=== PATIENT | female | born 1935 ===

== ENCOUNTER 2018-03-18 04:18 | Observation (INO) | payer MEDICARE ==
--- NOTE | 2018-03-18 04:44 | ED PDOC ---
Arrival/HPI - General Chief Complaint: Weakness/Neurological Deficit Time Seen by Provider: 03/18/18 04:21 Historian: Patient - History of Present Illness Narrative History of Present Illness (Text): 03/18/18 04:37 Francesca Duong is an 82 year old female, whose past medical history includes hypertension and pacemaker, who presents to the Emergency department accompanied by family complaining of epigastric discomfort. Daughter states patient woke up today with complaints of lower chest/epigastric discomfort. Patient denies any associated nausea, vomiting, or diarrhea. Daughter also notes patient had an episode of some tremors to her arms. Patient also denies any headache, focal weakness, shortness of breath, or any other complaints. Symptom Onset: Gradual Symptom Course: Unchanged Activities at Onset: Light Context: Home Past Medical History - Provider Review Nursing Documentation Reviewed: Yes - Cardiac Hx Congestive Heart Failure: Yes Hx Hypertension: Yes - Neurological Hx Syncope: Yes - Psychiatric Hx Psychophysiologic Disorder: No Hx Substance Use: No Family/Social History - Physician Review Nursing Documentation Reviewed: Yes Family/Social History: Unknown Family HX Smoking Status: Never Smoked Hx Alcohol Use: No Hx Substance Use: No Allergies/Home Meds Allergies/Adverse Reactions: Allergies No Known Allergies Allergy (Verified 03/18/18 04:32) Home Medications: Home Meds Medication Instructions Recorded Confirmed Atorvastatin Calcium 40 mg PO DAILY 03/18/18 03/18/18 Bisoprolol Fumarate 5 mg PO DAILY 03/18/18 03/18/18 Losartan [Cozaar] 12.5 mg PO DAILY 03/18/18 03/18/18 Ranitidine HCl [Zantac] 150 mg PO DAILY 03/18/18 03/18/18 Ranolazine [Ranexa] 1,000 mg PO BID 03/18/18 03/18/18 Spironolactone [Aldactone] 25 mg PO DAILY 03/18/18 03/18/18 Review of Systems - Physician Review All systems were reviewed & negative as marked: Yes - Review of Systems Constitutional: Other (+tremors). absent: Fevers Eyes: Normal ENT: Normal Respiratory: Normal. absent: SOB, Cough Cardiovascular: Chest Pain Gastrointestinal: Abdominal Pain. absent: Diarrhea, Nausea, Vomiting Genitourinary Female: Normal Musculoskeletal: Normal. absent: Back Pain, Neck Pain Skin: Normal. absent: Rash Neurological: Normal. absent: Headache, Dizziness, Focal Weakness Endocrine: Normal Hemo/Lymphatic: Normal Psychiatric: Normal Physical Exam Vital Signs Reviewed: Yes Temperature: Afebrile Blood Pressure: Normal Pulse: Regular Respiratory Rate: Normal Appearance: Positive for: Well-Appearing, Non-Toxic, Comfortable Pain Distress: None Mental Status: Positive for: Alert and Oriented X 3 - Systems Exam Head: Present: Atraumatic, Normocephalic Pupils: Present: PERRL Extroacular Muscles: Present: EOMI Conjunctiva: Present: Normal Mouth: Present: Moist Mucous Membranes Neck: Present: Normal Range of Motion Respiratory/Chest: Present: Clear to Auscultation, Good Air Exchange. No: Respiratory Distress, Accessory Muscle Use Cardiovascular: Present: Regular Rate and Rhythm, Normal S1, S2. No: Murmurs Abdomen: No: Tenderness, Distention, Peritoneal Signs Back: Present: Normal Inspection Upper Extremity: Present: Other (Faint position tremors of hands). No: Cyanosis, Edema Lower Extremity: Present: Normal Inspection. No: Edema Neurological: Present: GCS=15, CN II-XII Intact, Speech Normal Skin: Present: Warm, Dry, Normal Color. No: Rashes Psychiatric: Present: Alert, Oriented x 3, Normal Insight, Normal Concentration Medical Decision Making ED Course and Treatment: 03/18/18 04:38 Impression: 82 year old female complaining of lower chest/epigastric discomfort and some tremors to the hands. Plan: -- CT Head w/o contrast -- EKG -- Chest X-ray -- Labs, cardiac enzymes -- Reassess and disposition Progress Notes: 03/18/18 04:48 Reviewed EKG, 100% paced rhythm at 60 bpm. 03/18/18 05:39 Chest X-ray reviewed, shows no acute processes. 03/18/18 05:52 CT Head: There is normal configuration of sella turcica. There are no intra or extra- axial collections. There is no mass effect or midline shift. There is no evidence of hematoma formation. No hydrocephalus is present. The ventricles are symmetrical. No abnormal calcifications are present. There is diffuse age-appropriate cerebellar and cerebral atrophy with proportionally dilated ventricles and cortical sulci. There are bilateral periventricular and subcortical white matter hypolucencies compatible with mild chronic microvascular disease. Otherwise, no significant focal abnormalities are seen either in the posterior fossa or supratentorial compartment. IMPRESSION: 1. Age-appropriate cerebellar and cerebral atrophy. 2. Mild chronic microvascular disease. 3. No evidence of acute intracranial pathology. Thank you for your kind referral of this patient. Electronically signed on Mar 18, 2018 5:50:31 AM EST by: Sheryl Roman M.D., Certified by ABR, MSK, Neuroradiology 03/18/18 06:[address] Victoria, who is aware and agrees with plan. Accepts pt in to her service. Pt will go to Telemetry observation for chest pain. Requests Dr. Gupta on consult. - Lab Interpretations I have reviewed the lab results: Yes - RAD Interpretation Clinical Trial Assistant: ED Physician, Radiologist - EKG Interpretation Interpreted by ED Physician: Yes Type: 12 lead EKG - Scribe Statement The provider has reviewed the documentation as recorded by the Tannaibkishor Forbes Provider Scribe Attestation: All medical record entries made by the Scribe were at my direction and personally dictated by me. I have reviewed the chart and agree that the record accurately reflects my personal performance of the history, physical exam, medical decision making, and the department course for this patient. I have also personally directed, reviewed, and agree with the discharge instructions and disposition. Disposition/Present on Arrival - Present on Arrival Any Indicators Present on Arrival: No History of DVT/PE: No History of Uncontrolled Diabetes: No Urinary Catheter: No History of Decub. Ulcer: No History Surgical Site Infection Following: None - Disposition Have Diagnosis and Disposition been Completed?: Yes Diagnosis: Chest pain Disposition: HOSPITALIZED Disposition Time: 06:09 Condition: STABLE Discharge Instructions (ExitCare): Chest Pain (ED) Forms: [employer] (Gabonese)
[2018-03-18 04:49] VITALS: RESP 18
[2018-03-18 05:19] LABS: HEMOGLOBIN 12.7 g/dL (12.0-16.0); MEAN CELL VOLUME 97.4 fl (80.0-105.0); MEAN CORPUSCULAR HEMOGLOBIN 33.3 pg (25.0-35.0); MEAN CORPUSCULAR HGB CONC 34.2 g/dl (31.0-37.0); MEAN PLATELET VOLUME 10.1 fl (7.0-11.0); RBC 3.81 10^6/uL (3.5-6.1); WHITE BLOOD COUNT 5.5 10^3/uL (4.5-11.0)
[2018-03-18 05:38] LABS: INR 1.08; PROTHROMBIN TIME 12.4 SECONDS (9.4-12.5)
[2018-03-18 05:40] LABS: ALB/GLOB RATIO 1.1 (1.1-1.8); ALT/SGPT 59 U/L (7-56); AST/SGOT 54 U/L (14-36); BLOOD UREA NITROGEN 34 mg/dL (7-21); CALCIUM 9.6 mg/dL (8.4-10.5); GFR NON-AFRICAN AMERICAN 43
[2018-03-18 05:43] LABS: TROPONIN I < 0.01 ng/mL
--- NOTE | 2018-03-18 09:07 | CT ---
Date of service: 03/18/2018 PROCEDURE: CT HEAD WITHOUT CONTRAST. HISTORY: tremors COMPARISON: None available. TECHNIQUE: Axial computed tomography images were obtained through the head/brain without intravenous contrast. Radiation dose: Total exam DLP = 710.92 mGy-cm. This CT exam was performed using one or more of the following dose reduction techniques: Automated exposure control, adjustment of the mA and/or kV according to patient size, and/or use of iterative reconstruction technique. FINDINGS: HEMORRHAGE: No intracranial hemorrhage. BRAIN: No mass effect or edema. No acute findings. Mild age-related atrophy and microvascular changes VENTRICLES: Unremarkable. No hydrocephalus. CALVARIUM: Unremarkable. PARANASAL SINUSES: Unremarkable as visualized. No significant inflammatory changes. MASTOID AIR CELLS: Unremarkable as visualized. No inflammatory changes. OTHER FINDINGS: The report concurs with the preliminary [facility] report IMPRESSION: No acute intracranial findings
--- NOTE | 2018-03-18 09:26 | CARD ---
APPROVED REPORT Date of service: 03/18/2018 EKG Measurement Heart [id number] <Conclusion> Electronic ventricular pacemaker
[2018-03-18] MEDS ORDERED: BISOPROLOL FUMARATE 5 MG PO SCH ×2 (10:00)
--- NOTE | 2018-03-18 11:09 | RAD ---
Date of service: 03/18/2018 PROCEDURE: CHEST RADIOGRAPH, 1 VIEW HISTORY: pain COMPARISON: None available. FINDINGS: LUNGS: Clear. PLEURA: No pneumothorax or pleural fluid seen. CARDIOVASCULAR: Mild cardiomegaly. Single lead pacemaker. Aortic calcifications OSSEOUS STRUCTURES: No significant abnormalities. VISUALIZED UPPER ABDOMEN: Normal. OTHER FINDINGS: None. IMPRESSION: No active disease.
[2018-03-18 11:56] VITALS: BMI 25.6
[2018-03-18 12:58] LABS: TROPONIN I 0.02 ng/mL
--- NOTE | 2018-03-18 14:19 | US ---
PROCEDURE: Bilateral carotid artery duplex ultrasound HISTORY: Carotid stenosis PHYSICIAN(S): Franklyn Mccann MD. TECHNIQUE: Duplex sonography and color-flow Doppler were used to evaluate the carotid bifurcations and limited segments of the vertebral arteries bilaterally. The proximal internal carotid arteries are moderately tortuous bilaterally FINDINGS: There is mild smooth heterogeneous plaque noted at the carotid bifurcations bilaterally. The peak systolic velocity in the proximal right internal carotid artery is 67 cm/sec. This corresponds to a 20 to 39% proximal right ICA stenosis. Normal systolic velocities are noted in the proximal right external carotid artery. There is antegrade flow in the right vertebral artery. The peak systolic velocity in the proximal left internal carotid artery is 98 cm/sec. This corresponds to a 20 to 39% proximal left ICA stenosis. Normal systolic velocities are noted in the proximal left external carotid artery. There is antegrade flow in the left vertebral artery. IMPRESSION: 1. Bilateral 20-39% proximal ICA stenoses. 2. Antegrade flow in both vertebral arteries.
--- NOTE | 2018-03-18 14:25 | US ---
Date of service: 03/18/2018 HISTORY: epigastric pain COMPARISON: None. TECHNIQUE: Sonographic evaluation of the abdomen. FINDINGS: LIVER: Measures 15.0 cm. Normal echogenicity of the liver parenchyma. No mass. No intrahepatic bile duct dilatation. GALLBLADDER: Status post cholecystectomy COMMON BILE DUCT: Measures 8 mm. Consistent with age related ectasia and prior cholecystectomy. PANCREAS: Unremarkable as visualized. No mass. No ductal dilatation. RIGHT KIDNEY: Measures 11.0cm. Normal echogenicity. No calculus, mass, or hydronephrosis. LEFT KIDNEY: Measures 10.3cm. Normal echogenicity. No calculus, mass, or hydronephrosis. SPLEEN: Normal in size and contour. No mass. AORTA: No aneurysmal dilatation. IVC: Unremarkable. OTHER FINDINGS: None. IMPRESSION: Status post cholecystectomy. No evidence of biliary obstruction.
[2018-03-18 16:05] VITALS: BP 125/74; PULSE 87; TEMP 98.4; O2SAT 95
--- NOTE | 2018-03-18 20:00 | CON ---
DATE: 03/18/2018 CARDIOLOGY CONSULTATION HISTORY OF PRESENT ILLNESS: The patient is an 82-year-old woman, who presents with a little epigastric nervousness this morning. The patient was scheduled for an ICD up in [place] this morning. The patient has had an extensive cardiac workup in the past and the most recent with a stress test that was reported to be negative approximately 4 to 8 weeks ago. She suffers from coronary disease with her last stent being placed 12 years ago. She denies chest pain, denies shortness of breath. No diabetes mellitus noted. SOCIAL HISTORY: The patient does not smoke. REVIEW OF SYSTEMS: A 14-point review of systems is reviewed in detail. No cardiac symptoms are noted. The patient is ambulating without symptoms. PHYSICAL EXAMINATION: VITAL SIGNS: Stable. NECK: Negative JVD. LUNGS: Without rales. HEART: S1, S2. EXTREMITIES: Without edema. EKG shows no acute changes. LABORATORY DATA: The first troponin is negative. IMPRESSION: 1. Epigastric discomfort. 2. Stable angina. 3. No evidence for acute coronary syndrome. 4. Hypertension. 5. Dilated cardiomyopathy. Given these findings, we will observe the second troponin. If negative, the patient can be discharged. Given her recent negative stress test, the patient can follow with the wash test checker, who has been following her for many years. Franklyn Gupta MD
--- NOTE | 2018-03-19 06:04 | HP ---
DATE OF EXAM: <> HISTORY OF PRESENT ILLNESS: The patient is 82 years old, seen and examined. The patient is Com[place]an speaking, history obtained from the son and [id number] by the bedside. According to son, the patient lives in [place] and she had pacemaker place couple of years ago and that was supposed to be changed and the patient has appointment today in [place] on her psychology department chair and primary care doctor in [place]. So, she was scheduled to be going for pacemaker/defibrillator placement today. The patient states in the middle on night, she woke up and she started to have generalized shakes, most on the right side. Her daughter who she lives with called brother, who advised her to call ambulance. The patient denies any weakness or numbness, had some chest tightness. She had generalized shakes. No history of fever or chills. No history of nausea or vomiting. No abdominal pain. They called ambulance, she was brought to ER. By the time I saw the patient, she was symptom-free and she wanted to call home. PAST MEDICAL HISTORY: Significant for: 1. Hypertension. 2. Hyperlipidemia. 3. Pulmonary hypertension. 4. Dilated cardiomyopathy with an ejection fraction of 15-20%. ALLERGIES: SHE IS NOT ALLERGIC TO ANY MEDICATIONS. MEDICATION AT HOME: She is on Cozaar 12.5 daily, 5 mg daily, atorvastatin 40 mg daily, ranitidine 150 daily, Ranexa 1000 twice a day, and spironolactone 25 daily. SOCIAL HISTORY: She used to be smoker in the remote past. She lives with her daughter lately, but otherwise she lives in [place]. PHYSICAL EXAMINATION GENERAL: She is fully awake, alert, oriented, able to communicate, speak some Kyrgyz. VITAL SIGNS: She is afebrile, pulse 87, respiration 18, blood pressure 125/74. LUNGS: Bilateral fair airflow. No rhonchi or crackle. HEART: S1 and S2 audible. ABDOMEN: Soft, nontender. No rebound, no guarding. NEUROLOGIC: The patient is awake, alert and oriented, communicative, nonfocal. No motor or sensory deficits. EXTREMITIES: Bilateral legs, no edema. LABORATORY EXAMINATION: WBC 5.5, hemoglobin 12.7, hematocrit 37.1, platelet 150. PT 12.4. INR 1.08 Chemistry: Sodium 139, potassium 4.7, chloride 105, CO2 of 25, BUN 34, creatinine 1.2. Blood sugar 121. LFTs shows AST 54 and ALT 59. Two sets of cardiac enzymes are negative. She has carotid Dopplers done that is unremarkable. Bilateral 39% stenosis abdominal sonogram, status post cholecystectomy, no evidence of biliary obstruction. ASSESSMENT: 1. Probably anxiety disorder. 2. Hypertension. 3. Dilated cardiomyopathy. 4. Hyperlipidemia. 5. History of pacemaker placement and she was scheduled to have implantable cardioverter-defibrillator in [place] today. PLAN: The patient will be seen by Dr. Gupta. This is no evidence of coronary ischemia. The patient already has scheduled appointment with her psychology department chair, so she will be discharge today and she will follow up with her psychology department chair in [place]. Marylou Victoria MD
== END 2018-03-18 16:17 | disposition home or self-care (01) ==
LOC: ED 04:18 → ERH 06:04 → MERGE 06:04 → ERH 06:17 → 3RSO 07:39
PROVIDERS: ADMIT Internal Medicine; ATTEND Internal Medicine
DX: I20.8 Other forms of angina pectoris (principal); R19.8 Other specified symptoms and signs involving the digestive system and abdomen; I42.0 Dilated cardiomyopathy; I11.0 Hypertensive heart disease with heart failure; I50.9 Heart failure, unspecified; I27.20 Pulmonary hypertension, unspecified; E78.5 Hyperlipidemia, unspecified; Z87.891 Personal history of nicotine dependence; Z95.0 Presence of cardiac pacemaker
CPT/HCPCS: 36415; 70450; 71045; 76700; 80053; 82550; 83615; 84484; 85027; 85610; 85730; 93005; 93880; 99285; G0378